=== PATIENT | male | born 1945 | race Caucasian/White ===

== ENCOUNTER → 2017-09-30 | Outpatient (CLI) | payer MEDICARE ==
[2017-09-30 16:15] LABS: ALT 26 U/L (21-72); AST 23 U/L (17-59); Alkaline Phosphatase 48 U/L (38-126); Blood Urea Nitrogen 25 mg/dL (9-20); Calcium 8.8 mg/dL (8.4-10.2); Chloride 89 mmol/L (98-107); Glucose 214 mg/dL (74-99); Potassium 4.7 mmol/L (3.5-5.1); Sodium 143 mmol/L (137-145); Total Bilirubin 0.4 mg/dL (0.2-1.3); Total Protein 6.1 g/dL (6.3-8.2)
[2017-09-30 16:22] LABS: Anion Gap 7 mmol/L
[2017-09-30 18:15] LABS: Carbon Dioxide 47 mmol/L (22-30)
== END | disposition home or self-care (01) ==
LOC: LABWHC1 15:25
PROVIDERS: ATTEND Internal Medicine
DX: I50.9 Heart failure, unspecified (principal)
CPT/HCPCS: 36415; 80053; 83880

== ENCOUNTER 2020-08-09 17:13 | Inpatient (IN) | payer MEDICARE ==
[2020-08-09] MEDS ORDERED: NITROGLYCERIN SL TABS 0.4 MG TAB SUBLINGUAL STA ×3 (17:31)
[2020-08-09] MEDS ORDERED: ASPIRIN 81 MG PO STA (17:31)
--- NOTE | 2020-08-09 17:34 | ED ---
General Adult HPI - General Chief complaint: Chest Pain Stated complaint: Chest Pain Time Seen by Provider: 08/09/20 17:23 Source: patient, RN notes reviewed Mode of arrival: ambulatory Limitations: no limitations - History of Present Illness Initial comments: Patient is a pleasant 74-year-old male presenting to the emergency Department with complaints of chest discomfort. Onset of symptoms was a couple of hours ago while walking around at home. Discomfort was moderate and improved with 1 nitroglycerin. Discomfort is currently 5/10. Patient has a difficult time describing his symptoms. No radiation. Patient does have a little bit of associated dyspnea, especially with exertion. No nausea or diaphoresis. Patient does have history of similar symptoms previously associated with heart attack and stent placement. No leg pain or leg swelling. - Related Data Home Medications Medication Instructions Recorded Confirmed Calcipotriene [Dovonex] 1 applic TOPICAL HS 08/09/20 08/09/20 Furosemide [Lasix] 80 mg PO BID 08/09/20 08/09/20 Insulin Glargine,Hum.rec.anlog 50 units SQ HS 08/09/20 08/09/20 [Toujeo Solostar] Insulin Lispro [humaLOG Kwikpen] See Protocol SQ ACHS 08/09/20 08/09/20 Losartan [Cozaar] 25 mg PO DAILY 08/09/20 08/09/20 Rosuvastatin Calcium [Crestor] 10 mg PO DAILY 08/09/20 08/09/20 Vitamin D3(Unknown Dose) 1 tab PO DAILY 08/09/20 08/09/20 carvediloL [Coreg] 6.25 mg PO BID 08/09/20 08/09/20 metFORMIN HCL [Glucophage] 1,000 mg PO BID 08/09/20 08/09/20 Allergies Allergy/AdvReac Type Severity Reaction Status Date / Time No Known Allergies Allergy Verified 08/09/20 18:09 Review of Systems ROS Statement: Those systems with pertinent positive or pertinent negative responses have been documented in the HPI. ROS Other: All systems not noted in ROS Statement are negative. Constitutional: Denies: fever Eyes: Denies: eye pain ENT: Denies: ear pain Respiratory: Reports: as per HPI Cardiovascular: Reports: as per HPI, chest pain Endocrine: Reports: fatigue Gastrointestinal: Denies: abdominal pain, nausea Genitourinary: Denies: dysuria Musculoskeletal: Denies: back pain Skin: Denies: rash Neurological: Denies: weakness Past Medical History Past Medical History: COPD, Diabetes Mellitus, Hyperlipidemia, Hypertension, Myocardial Infarction ([place]), Renal Disease History of Any Multi-Drug Resistant Organisms: None Reported Past Surgical History: Heart Catheterization With Stent, Hernia Repair Additional Past Surgical History / Comment(s): 5 cardiac stents Past Psychological History: No Psychological Hx Reported Smoking Status: Former smoker Past Alcohol Use History: None Reported Past Drug Use History: None Reported General Exam Limitations: no limitations General appearance: alert Head exam: Present: normocephalic Eye exam: Present: normal appearance Neck exam: Present: normal inspection Respiratory exam: Present: normal lung sounds bilaterally. Absent: chest wall tenderness Cardiovascular Exam: Present: regular rate, normal rhythm Expanded Peripheral pulses: 2+: Radial (R), Radial (L), Posterior Tibialis (R), Posterior Tibialis (L) GI/Abdominal exam: Present: soft, hernia (Easily reducible umbilical hernia). Absent: distended, tenderness Extremities exam: Present: normal inspection. Absent: pedal edema, calf tenderness Neurological exam: Present: alert Psychiatric exam: Present: normal affect, normal mood Skin exam: Present: normal color Course Vital Signs 08/09/20 08/09/20 17:20 18:19 Temperature 98 F Pulse Rate 96 101 H Respiratory 18 18 Rate Blood Pressure 168/87 152/83 O2 Sat by Pulse 100 95 Oximetry - Reevaluation(s) Reevaluation #1: 08/09/20 18:30 Case was discussed with Dr. Malone including patient's troponin, hemoglobin and platelet count. At this time he does recommend only aspirin. He states heparin will be considered if patient's discomfort returns. Patient reevaluated and updated. Dr. alves has been paged for admission. EKG Findings - EKG Comments: EKG Findings:: Sinus tachycardia 1:15. For screening AV block IN of 224. QRS 98. QT 300. QTc 4:15. Left axis. LVH criteria. Nonspecific T waves. Medical Decision Making - Medical Decision Making Patient reevaluated and symptom-free following nitroglycerin. Case also discussed with Dr. Alves who will admit his patient and agrees with cardiology consult. He also requests consult with Dr. Morris who sees patient for pulmonary fibrosis. He is made aware of plan regarding anticoagulation per cardiology - Lab Data Result diagrams: 08/09/20 18:04 08/09/20 17:42 Lab Results 08/09/20 08/09/20 08/09/20 Range/Units 17:42 17:42 18:04 WBC 6.1 (3.8-10.6) k/uL RBC 2.73 L (4.30-5.90) m/uL Hgb 8.1 L (13.0-17.5) gm/dL Hct 25.0 L (39.0-53.0) % MCV 91.4 (80.0-100.0) fL MCH 29.6 (25.0-35.0) pg MCHC 32.4 (31.0-37.0) g/dL RDW 14.1 (11.5-15.5) % Plt Count 109 L (150-450) k/uL MPV 7.0 Neutrophils % 76 % Lymphocytes % 11 % Monocytes % 6 % Eosinophils % 4 % Basophils % 1 % Neutrophils # 4.6 (1.3-7.7) k/uL Lymphocytes # 0.7 L (1.0-4.8) k/uL Monocytes # 0.4 (0-1.0) k/uL Eosinophils # 0.2 (0-0.7) k/uL Basophils # 0.0 (0-0.2) k/uL PT (9.0-12.0) sec INR (<1.2) APTT (22.0-30.0) sec Sodium 143 (137-145) mmol/L Potassium 5.6 H (3.5-5.1) mmol/L Chloride 103 (98-107) mmol/L Carbon Dioxide 35 H (22-30) mmol/L Anion Gap 5 mmol/L BUN 43 H (9-20) mg/dL Creatinine 1.91 H (0.66-1.25) mg/dL Est GFR (CKD-EPI)AfAm 39 (>60 ml/min/1.73 sqM) Est GFR (CKD-EPI)NonAf 34 (>60 ml/min/1.73 sqM) Glucose 194 H (74-99) mg/dL Calcium 9.0 (8.4-10.2) mg/dL Magnesium 2.2 (1.6-2.3) mg/dL Total Bilirubin 0.4 (0.2-1.3) mg/dL AST 29 (17-59) U/L ALT 14 (4-49) U/L Alkaline Phosphatase 53 (38-126) U/L Troponin I 0.085 H* (0.000-0.034) ng/mL NT-Pro-B Natriuret Pep pg/mL Total Protein 6.8 (6.3-8.2) g/dL Albumin 4.4 (3.5-5.0) g/dL Coronavirus (PCR) (Not Detectd) 08/09/20 08/09/20 08/09/20 Range/Units 18:04 18:04 18:08 WBC (3.8-10.6) k/uL RBC (4.30-5.90) m/uL Hgb (13.0-17.5) gm/dL Hct (39.0-53.0) % MCV (80.0-100.0) fL MCH (25.0-35.0) pg MCHC (31.0-37.0) g/dL RDW (11.5-15.5) % Plt Count (150-450) k/uL MPV Neutrophils % % Lymphocytes % % Monocytes % % Eosinophils % % Basophils % % Neutrophils # (1.3-7.7) k/uL Lymphocytes # (1.0-4.8) k/uL Monocytes # (0-1.0) k/uL Eosinophils # (0-0.7) k/uL Basophils # (0-0.2) k/uL PT 10.5 (9.0-12.0) sec INR 1.0 (<1.2) APTT 23.4 (22.0-30.0) sec Sodium (137-145) mmol/L Potassium (3.5-5.1) mmol/L Chloride (98-107) mmol/L Carbon Dioxide (22-30) mmol/L Anion Gap mmol/L BUN (9-20) mg/dL Creatinine (0.66-1.25) mg/dL Est GFR (CKD-EPI)AfAm (>60 ml/min/1.73 sqM) Est GFR (CKD-EPI)NonAf (>60 ml/min/1.73 sqM) Glucose (74-99) mg/dL Calcium (8.4-10.2) mg/dL Magnesium (1.6-2.3) mg/dL Total Bilirubin (0.2-1.3) mg/dL AST (17-59) U/L ALT (4-49) U/L Alkaline Phosphatase (38-126) U/L Troponin I (0.000-0.034) ng/mL NT-Pro-B Natriuret Pep 3540 pg/mL Total Protein (6.3-8.2) g/dL Albumin (3.5-5.0) g/dL Coronavirus (PCR) Not Detected (Not Detectd) - Radiology Data Radiology results: image reviewed (Chest x-ray does show basilar pulmonary infiltrates and atelectasis worse than previous. No definite heart failure. Probable pulmonary fibrosis.) Critical Care Time Critical Care Time: Yes Total Critical Care Time: 32 Disposition Clinical Impression: Unstable angina pectoris Disposition: ADMITTED IP TO THIS [facility] Condition: Serious Is patient prescribed a controlled substance at d/c from ED?: No Referrals: Migdalia Morris MD [STAFF PHYSICIAN] - 1-2 days Decision Time: 18:36
[2020-08-09 17:59] LABS: Albumin 4.4 g/dL (3.5-5.0); Magnesium 2.2 mg/dL (1.6-2.3); Potassium 5.6 mmol/L (3.5-5.1); Total Bilirubin 0.4 mg/dL (0.2-1.3); Total Protein 6.8 g/dL (6.3-8.2)
--- NOTE | 2020-08-09 18:00 | XR ---
EXAMINATION TYPE: XR chest 2V DATE OF EXAM: 08/09/2020 COMPARISON: 03/29/2020 HISTORY: Short of breath chest pain TECHNIQUE: FINDINGS: There is poor inspiration. There is atelectasis at the lung bases. There is no definite hea rt failure. There is coarse interstitial density in the lungs. There are chest leads. IMPRESSION: Basilar pulmonary infiltrates and atelectasis appears worse than old exam. No definite he art failure. There is probably pulmonary fibrosis.
[2020-08-09 18:08] LABS: Basophils % (A) 1 %; Eosinophils # (A) 0.2 k/uL (0-0.7); Eosinophils % (A) 4 %; HGB 8.1 gm/dL (13.0-17.5); Lymphocytes # (A) 0.7 k/uL (1.0-4.8); Lymphocytes % (A) 11 %; MCH 29.6 pg (25.0-35.0); MCHC 32.4 g/dL (31.0-37.0); MCV 91.4 fL (80.0-100.0); Monocytes # (A) 0.4 k/uL (0-1.0); Monocytes % (A) 6 %; Neutrophils # (A) 4.6 k/uL (1.3-7.7); Neutrophils % (A) 76 %; Platelet Count 109 k/uL (150-450); RBC 2.73 m/uL (4.30-5.90); RDW 14.1 % (11.5-15.5); WBC 6.1 k/uL (3.8-10.6)
[2020-08-09 18:16] LABS: Partial Thromboplastin Time 23.4 sec (22.0-30.0); Prothrombin Time 10.5 sec (9.0-12.0)
[2020-08-09] MEDS ORDERED: NITROGLYCERIN SL TABS 0.4 MG TAB SUBLINGUAL PRN (18:36)
[2020-08-09] MEDS ORDERED: INSULIN DETEMIR (LEVEMIR) 100 UNIT/ML SYR SQ SCH (23:30)
[2020-08-09 23:33] LABS: Cholesterol 94 mg/dL (<200); HDL Cholesterol 25 mg/dL (40-60); LDL Cholesterol,Calculated 26 mg/dL (0-99); Triglycerides 213 mg/dL (<150)
[2020-08-09 23:53] LABS: Glucose,Whole Blood 211 mg/dL (75-99)
[2020-08-10] MEDS: NITROGLYCERIN OINT 1 INCH/GM PACKET TOPICAL SCH ×3 (00:11→13:04)
[2020-08-10 06:19] LABS: Glucose,Whole Blood 115 mg/dL (75-99)
[2020-08-10] MEDS: INSULIN ASPART (NovoLOG) 100 UNIT/ML VIAL SQ SCH ×3 (06:31→17:13)
[2020-08-10] MEDS: carvediloL 6.25 MG TAB PO SCH ×3 (06:44→17:15)
[2020-08-10 07:46] VITALS: RESP 18
[2020-08-10] MEDS: FUROSEMIDE 80 MG TAB PO SCH ×2 (08:10)
[2020-08-10] MEDS ORDERED: LOSARTAN 25 MG TAB PO SCH (09:00)
[2020-08-10] MEDS ORDERED: ASPIRIN 325 MG TAB PO SCH (09:00)
[2020-08-10] MEDS ORDERED: metFORMIN 500 MG TAB PO SCH (09:00)
[2020-08-10] MEDS ORDERED: ATORVASTATIN 20 MG TAB PO SCH (09:00)
[2020-08-10] MEDS ORDERED: NON FORMULARY DRUG (Vitamin D3(Unknown Dose) 1 TAB) PO SCH (09:00)
[2020-08-10 09:25] LABS: Calcium 8.9 mg/dL (8.4-10.2)
[2020-08-10] MEDS ORDERED: NITROGLYCERIN SL TABS 0.4 MG TAB SUBLINGUAL PRN (09:49)
[2020-08-10] MEDS ORDERED: SODIUM CHLORIDE 0.9% 1,000 ML in EMPTY BAG 1 BAG IV ONE (09:49)
[2020-08-10] MEDS ORDERED: ATORVASTATIN 20 MG TAB PO STA (09:49)
[2020-08-10] MEDS ORDERED: ALPRAZolam 0.5 MG TAB PO PRN (09:49)
[2020-08-10] MEDS ORDERED: ALPRAZolam 0.25 MG TAB PO PRN (09:49)
[2020-08-10] MEDS ORDERED: ASPIRIN 325 MG TAB PO STA (09:49)
[2020-08-10] MEDS ORDERED: LIDOCAINE 1% INJ 10MG/ML (20 ML MDV) ONE (10:21)
[2020-08-10] MEDS ORDERED: VERAPAMIL 2.5 MG/ML 2 ML AMP ONE (10:21)
[2020-08-10 10:23] LABS: Glucose,Whole Blood 74 mg/dL (75-99)
[2020-08-10] MEDS ORDERED: IV FLUID CONTINUATION 1,000 ML IV ONE (10:45)
[2020-08-10] MEDS ORDERED: fentaNYL (PF) 50 MCG/ML 2 ML AMP ONE (10:58)
[2020-08-10] MEDS ORDERED: MIDAZOLAM 2 MG/2 ML VIAL IVP ONE (10:58)
[2020-08-10] MEDS ORDERED: fentaNYL (PF) 50 MCG/ML 2 ML AMP IVP ONE (10:58)
[2020-08-10] MEDS ORDERED: LIDOCAINE 1% INJ 10MG/ML (20 ML MDV) SQ ONE (10:59)
[2020-08-10] MEDS: VERAPAMIL SYRINGE (5 MG/10 ML) INTRAARTER ONE ×2 (11:01→11:28)
[2020-08-10] MEDS ORDERED: IOPAMIDOL-370 125ML BTL INJ ONE (11:29)
[2020-08-10 11:38] LABS: HCT 26.2 % (39.0-53.0); HGB 8.2 gm/dL (13.0-17.5); Hypochromasia Slight; MCH 28.9 pg (25.0-35.0); MCHC 31.3 g/dL (31.0-37.0); MCV 92.3 fL (80.0-100.0); Mean Platelet Volume 7.5; Platelet Count 109 k/uL (150-450); RBC 2.84 m/uL (4.30-5.90); RDW 14.2 % (11.5-15.5); WBC 6.5 k/uL (3.8-10.6)
[2020-08-10 12:02] LABS: Glucose,Whole Blood 75 mg/dL (75-99)
--- NOTE | 2020-08-10 13:24 | P.HPIM ---
History of Present Illness H&P Date: 08/10/20 (Chest pain, acute coronary artery syndrome) Chief Complaint: Chest pain, abnormal troponin, abnormal pro BNP, anemia. This is dictation of the history and physical by . Chief complaint chest pain precordial. History of present illness: 74 years old male presented to the emergency room department with the chest discomfort, onset of the chest pain to hour prior to the admission and that happened while walking around her home the discomfort was moderate improved by nitroglycerin. In the ER the discomfort was 5/10 patient also has other medical problems and he was having difficult to explain his symptoms, no radiation and he associated dyspnea. No nausea no vomiting no diaphoresis similar of the symptoms he had previous heart attack and previously stent placement. Past medical history: He is diabetes mellitus type 2 insulin-dependent fluctuating with uncontrolled. Pulmonary fibrosis improved by biopsy and treated by Dr. Chaudhari pulmonary and akil connelly. Hyper lipidemia and history of psoriasis. Vitamin D deficiency. COPD Hypertension benign with hypertensive heart disease Chronic kidney disease stage III. Previous history of myocardial infarction History of hernia repair cardiac catheterization, stent with a totally stent 5 in the past Habits former smoker quite. No drug use and no alcohol intake. Medication #1 Lasix 80 mg twice a day #2 insulin kilogram 2JU 50 units subcutaneously at at bedtime #3 insulin lispro Humalog before meals and at bedtime. Losartan 25 mg daily Rosuvastatin 10 mg daily Vitamin D3 1000 units daily. He was also on carvedilol 6.25 mg twice a day, Metformin 1000 mg twice a day Senokot S8.6 milligram tablet twice a day Spironolactone 25 mg once daily next furosemide 80 mg twice a day No belies her albuterol ipratropium 4 times a day inhalation therapy. Metoprolol 25 mg daily Permanent oxygen [address] Chaudhari for pulmonary fibrosis Nitrostat 0.4 mg sublingual when necessary aspirin 81 mg enteric-coated once a day. No ALLERGY. Review of system psychiatry patient was conscious alert oriented able to co mmunicate freely. No pacemaker Use glasses Denied any nausea or vomiting occasional constipation. Cardiovascular chest pain recurrent. Musculoskeletal back pain. Endocrine diabetes mellitus. Hyper inflation with emphysema and COPD pulmonary. benign prostatic hypertrophy. Oxygen supplemental dependent. Pulmonary interstitial lung disease. Thoracolumbar and lumbosacral degenerative arthritis. Peripheral edema and venous insult deficiency. Patient Seen and evaluated [id number] Head was normocephalic and atraumatic pupil was equal reactive no infection neck was supple no JVD no thyromegaly no lymphadenopathy. Respiratory lung was expanded with hyperinflation two thirds of the lung is rhonchi dry rhonchi with the associated of the pulmonary fibrosis and hypoxemia. Cardiovascular was sinus tachycardia found to be the troponin progressively elevation with underlying subendocardial ischemia with the coronary atherosclerosis. Extremities he had peripheral edema 1+ no tenderness on the. Neurologically he is awake alert psychiatry he has normal mood and skin color is pale with the underlying anemia the vital sign on admission indicating that temperature 90.8 pulse rate 96 Spataro rate 18 blood pressure 168/87 with the saturation 100% on 4 L. The assessment patient had acute coronary artery syndrome with chest pain and progressive elevation of troponin is less than and the the emergency room discuss it immediately with the cardiology and they will be seeing him in the morning and recommended aspirin and patient will be seen by consultation with the heavy equipment sales associate and the pulmonary Dr. Chaudhari or associate due to his pulmonary fibrosis which is chronic his white count is normal and found that his troponins progressively increased and patient may be taken to this afternoon to the cardiac cath by the cardiology patient already had 5 stents in the past and he has compromised heart The last echocardiogram available to me on the echocardiogram result as mentioned done on 04/05/2018 with the underlying ejection fraction 50% with a moderate concentric hypertrophy and hypokinesis of the inferior wall from the mid wall to the apex and diastolic function evaluation indicating created. And patient is well Seen Dr. Chaudhari on 08/03/2020 in the main office. Past Medical History Past Medical History: COPD, Diabetes Mellitus, Hyperlipidemia, Hypertension, Myocardial Infarction ([place]), Renal Disease Last Myocardial Infarction Date:: 2011 History of Any Multi-Drug Resistant Organisms: None Reported Past Surgical History: Heart Catheterization With Stent, Hernia Repair Additional Past Surgical History / Comment(s): 5 cardiac stents Past Anesthesia/Blood Transfusion Reactions: No Reported Reaction Date of Last Stent Placement:: 2011 Past Psychological History: No Psychological Hx Reported Smoking Status: Former smoker Past Alcohol Use History: None Reported Past Drug Use History: None Reported - Past Family History Father Additional Family Medical History / Comment(s): Lung cancer Medications and Allergies Home Medications Medication Instructions Recorded Confirmed Type Calcipotriene [Dovonex] 1 applic TOPICAL HS 08/09/20 08/09/20 History Furosemide [Lasix] 80 mg PO BID 08/09/20 08/09/20 History Insulin Glargine,Hum.rec.anlog 50 units SQ HS 08/09/20 08/09/20 History [Toujeo Solostar] Insulin Lispro [humaLOG Kwikpen] See Protocol SQ ACHS 08/09/20 08/09/20 History Losartan [Cozaar] 25 mg PO DAILY 08/09/20 08/09/20 History Rosuvastatin Calcium [Crestor] 10 mg PO DAILY 08/09/20 08/09/20 History Vitamin D3(Unknown Dose) 1 tab PO DAILY 08/09/20 08/09/20 History carvediloL [Coreg] 6.25 mg PO BID 08/09/20 08/09/20 History metFORMIN HCL [Glucophage] 1,000 mg PO BID 08/09/20 08/09/20 History Allergies Allergy/AdvReac Type Severity Reaction Status Date / Time No Known Allergies Allergy Verified 08/09/20 18:09 Physical Exam Vitals: Vital Signs Temp Pulse Pulse Resp BP BP BP 08/10/20 12:41 18 121/68 08/10/20 12:26 18 135/78 08/10/20 12:11 18 134/66 08/10/20 11:56 98.4 F 18 145/77 08/10/20 10:11 97.9 F 84 18 136/61 08/10/20 07:45 97.9 F 84 18 136/61 08/10/20 06:44 143/63 08/10/20 04:00 97.7 F 91 20 160/83 08/10/20 02:00 97 18 08/10/20 00:00 98.4 F 97 18 155/80 08/09/20 22:36 99 18 08/09/20 22:07 98.1 F 99 18 170/78 08/09/20 18:19 101 H 18 152/83 08/09/20 17:20 98 F 96 18 168/87 Pulse Ox 08/10/20 12:41 97 08/10/20 12:26 97 08/10/20 12:11 97 08/10/20 11:56 97 08/10/20 10:11 97 08/10/20 07:45 97 08/10/20 06:44 08/10/20 04:00 99 08/10/20 02:00 08/10/20 00:00 99 08/09/20 22:36 08/09/20 22:07 100 08/09/20 18:19 95 08/09/20 17:20 100 Intake and Output 08/09/20 08/10/20 08/10/20 22:59 06:59 14:59 Intake Total 150 Balance 150 Intake: IV 150 Other: Voiding Method Toilet Toilet Toilet Urinal # Voids 2 Weight 108.409 kg 107.6 kg Results CBC & Chem 7: 08/10/20 08:34 08/10/20 08:34 Labs: Abnormal Lab Results - Last 24 Hours (Table) 08/09/20 08/09/20 08/09/20 Range/Units 17:42 17:42 17:42 RBC (4.30-5.90) m/uL Hgb (13.0-17.5) gm/dL Hct (39.0-53.0) % Plt Count (150-450) k/uL Lymphocytes # (1.0-4.8) k/uL Sodium (137-145) mmol/L Potassium 5.6 H (3.5-5.1) mmol/L Carbon Dioxide 35 H (22-30) mmol/L BUN 43 H (9-20) mg/dL Creatinine 1.91 H (0.66-1.25) mg/dL Glucose 194 H (74-99) mg/dL POC Glucose (mg/dL) (75-99) mg/dL Troponin I 0.085 H* (0.000-0.034) ng/mL Triglycerides 213 H (<150) mg/dL HDL Cholesterol 25 L (40-60) mg/dL 08/09/20 08/09/20 08/09/20 Range/Units 18:04 21:11 23:44 RBC 2.73 L (4.30-5.90) m/uL Hgb 8.1 L (13.0-17.5) gm/dL Hct 25.0 L (39.0-53.0) % Plt Count 109 L (150-450) k/uL Lymphocytes # 0.7 L (1.0-4.8) k/uL Sodium (137-145) mmol/L Potassium (3.5-5.1) mmol/L Carbon Dioxide (22-30) mmol/L BUN (9-20) mg/dL Creatinine (0.66-1.25) mg/dL Glucose (74-99) mg/dL POC Glucose (mg/dL) (75-99) mg/dL Troponin I 0.125 H* 0.146 H* (0.000-0.034) ng/mL Triglycerides (<150) mg/dL HDL Cholesterol (40-60) mg/dL 08/09/20 08/10/20 08/10/20 Range/Units 23:51 06:17 08:34 RBC (4.30-5.90) m/uL Hgb (13.0-17.5) gm/dL Hct (39.0-53.0) % Plt Count (150-450) k/uL Lymphocytes # (1.0-4.8) k/uL Sodium 146 H (137-145) mmol/L Potassium (3.5-5.1) mmol/L Carbon Dioxide 42 H* (22-30) mmol/L BUN 42 H (9-20) mg/dL Creatinine 1.91 H (0.66-1.25) mg/dL Glucose (74-99) mg/dL POC Glucose (mg/dL) 211 H 115 H (75-99) mg/dL Troponin I (0.000-0.034) ng/mL Triglycerides (<150) mg/dL HDL Cholesterol (40-60) mg/dL 08/10/20 08/10/20 Range/Units 08:34 10:22 RBC 2.84 L (4.30-5.90) m/uL Hgb 8.2 L (13.0-17.5) gm/dL Hct 26.2 L (39.0-53.0) % Plt Count 109 L (150-450) k/uL Lymphocytes # (1.0-4.8) k/uL Sodium (137-145) mmol/L Potassium (3.5-5.1) mmol/L Carbon Dioxide (22-30) mmol/L BUN (9-20) mg/dL Creatinine (0.66-1.25) mg/dL Glucose (74-99) mg/dL POC Glucose (mg/dL) 74 L (75-99) mg/dL Troponin I (0.000-0.034) ng/mL Triglycerides (<150) mg/dL HDL Cholesterol (40-60) mg/dL Thrombosis Risk Factor Assmnt - Choose All That Apply Any of the Below Risk Factors Present?: Yes Each Factor Represents 1 point: Abnormal pulmonary function (COPD), Obesity (BMI >25) Other Risk Factors: Yes Each Risk Factor Represents 3 Points: Age 75 years or older Thrombosis Risk Factor Assessment Total Risk Factor Score: 5 Thrombosis Risk Factor Assessment Level: High Risk
[2020-08-10 13:26] LABS: Glucose,Whole Blood 110 mg/dL (75-99)
--- NOTE | 2020-08-10 13:48 | P.CRDCN ---
History of Present Illness Consult date: 08/10/20 History of present illness: CHIEF COMPLAINT: Chest pain HISTORY OF PRESENT ILLNESS: This is a 74-year-old male with a past medical history significant for diabetes mellitus, hyperlipidemia, hypertension, pulmonary fibrosis with home O2, chronic kidney disease, and coronary artery disease with previous stenting 5 (last stent in 2011). Patient follows in the office with Dr. Oneil. We have been asked to see the patient in consultation for chest pain. Patient examined this morning at the bedside. Patient states he has been having lower back pain for the past few months. He states it started to get a little bit worse yesterday. He also reports he began having a burning sensation in his chest around 11 AM. He also reports discomfort in his left arm. He states the burning in his chest and the pain in his left arm continued for a couple hours until he came to the hospital. Patient states these are the exact symptoms he experienced in the past when he required stents so he was concerned. At the time of examination this morning, the patient is denying any chest pain or pressure. He denies any discomfort in the left arm. Denies shortness of breath. Denies nausea or vomiting. Denies dizziness or lightheadedness. Patients hemoglobin 8.1 on admission. Baseline unknown. Patient denies any bright red blood in his stools or dark tarry stools. Patient's creatinine 1.91 on admission. Patient's creatinine was normal in 2018. Cardiology records reviewed from patient's office visit in April 2020 which reports patient now has a history of CKD and had a recent creatinine at that time of 2.1. DIAGNOSTICS: EKG reveals sinus tachycardia with heart rate of 115 Chest xray basilar pulmonary infiltrate and atelectasis appearing worse than old exam. No heart failure. Probable pulmonary fibrosis. Laboratory data: W BC 6.5. Hemoglobin 8.2. Platelet count 109. Sodium 146. Potassium 5.0. BUN 42. Creatinine 1.91. Troponin 0.085. 0.125. 0.146. Current home cardiac medications include Coreg 6.25 mg twice a day, Crestor 10mg daily, losartan 25 mg daily, Lasix 80 mg twice a day REVIEW OF SYSTEMS: At the time of my exam: CONSTITUTIONAL: Denies fever or chills. HEENT: Denies blurred vision, vision changes, or eye pain. Denies hemoptysis CARDIOVASCULAR: Denies chest pain, orthopnea, PND or palpitations RESPIRATORY: No shortness of breath. GASTROINTESTINAL: Denies abdominal pain. Denies nausea or vomiting. HEMATOLOGIC: Denies bleeding disorders. GENITOURINARY: Denies any blood in urine. SKIN: Denies pruitis. Denies rash. PHYSICAL EXAM: VITAL SIGNS: Reviewed. GENERAL: Well-developed in no acute distress. HEENT: Head is normocephalic. Pupils are equal, round. Sclerae anicteric. Mucous membranes of the mouth are moist. Neck supple. No JVD or thyromegaly LUNGS: Respirations even and unlabored. Lungs essentially clear to auscultation bilaterally. HEART: Regular rate and rhythm. S1 and S2 heard. ABDOMEN: Soft. Nondistended. Nontender. EXTREMITIES: Normal range of motion. No clubbing or cyanosis. Peripheral pulses intact. Trace bilateral lower extremity edema NEUROLOGIC: Awake and alert. Oriented x 3. ASSESSMENT: Non-ST elevated myocardial infarction Coronary artery disease with stent placement 5, last in 2011 Hypertension Hyperlipidemia Diabetes minus, type II Pulmonary fibrosis with home O2 Anemia, baseline unknown Chronic kidney disease PLAN: Obtain 2-D echo to assess cardiac structure and function Resume home cardiac medications Monitor kidney function Discussed case with patients paddle dyeing machine operator, Dr. Oneil. He states he is unavailable and requested Dr. Malone to perform cardiac cath. Patient to undergo cardiac cath today with Dr. Malone. Discussed with patient who is agreeable. Further recommendations pending patient's course Nurse practitioner note has been reviewed by physician. Signing provider agrees with the documented findings, assessment, and plan of care. Past Medical History Past Medical History: COPD, Diabetes Mellitus, Hyperlipidemia, Hypertension, M yocardial Infarction ([place]), Renal Disease Last Myocardial Infarction Date:: 2011 History of Any Multi-Drug Resistant Organisms: None Reported Past Surgical History: Heart Catheterization With Stent, Hernia Repair Additional Past Surgical History / Comment(s): 5 cardiac stents Past Anesthesia/Blood Transfusion Reactions: No Reported Reaction Date of Last Stent Placement:: 2011 Past Psychological History: No Psychological Hx Reported Smoking Status: Former smoker Past Alcohol Use History: None Reported Past Drug Use History: None Reported - Past Family History Father Additional Family Medical History / Comment(s): Lung cancer Medications and Allergies Home Medications Medication Instructions Recorded Confirmed Type Calcipotriene [Dovonex] 1 applic TOPICAL HS 08/09/20 08/09/20 History Furosemide [Lasix] 80 mg PO BID 08/09/20 08/09/20 History Insulin Glargine,Hum.rec.anlog 50 units SQ HS 08/09/20 08/09/20 History [Toujeo Solostar] Insulin Lispro [humaLOG Kwikpen] See Protocol SQ ACHS 08/09/20 08/09/20 History Losartan [Cozaar] 25 mg PO DAILY 08/09/20 08/09/20 History Rosuvastatin Calcium [Crestor] 10 mg PO DAILY 08/09/20 08/09/20 History Vitamin D3(Unknown Dose) 1 tab PO DAILY 08/09/20 08/09/20 History carvediloL [Coreg] 6.25 mg PO BID 08/09/20 08/09/20 History metFORMIN HCL [Glucophage] 1,000 mg PO BID 08/09/20 08/09/20 History Allergies Allergy/AdvReac Type Severity Reaction Status Date / Time No Known Allergies Allergy Verified 08/09/20 18:09 Physical Exam Vitals: Vital Signs Temp Pulse Pulse Resp BP BP BP 08/10/20 13:11 18 132/66 08/10/20 12:41 18 121/68 08/10/20 12:26 18 135/78 08/10/20 12:11 18 134/66 08/10/20 11:56 98.4 F 18 145/77 08/10/20 10:11 97.9 F 84 18 136/61 08/10/20 07:45 97.9 F 84 18 136/61 08/10/20 06:44 143/63 08/10/20 04:00 97.7 F 91 20 160/83 08/10/20 02:00 97 18 08/10/20 00:00 98.4 F 97 18 155/80 08/09/20 22:36 99 18 08/09/20 22:07 98.1 F 99 18 170/78 08/09/20 18:19 101 H 18 152/83 08/09/20 17:20 98 F 96 18 168/87 Pulse Ox 08/10/20 13:11 95 08/10/20 12:41 97 08/10/20 12:26 97 08/10/20 12:11 97 08/10/20 11:56 97 12/18/20 10:11 97 08/10/20 07:45 97 08/10/20 06:44 08/10/20 04:00 99 08/10/20 02:00 08/10/20 00:00 99 08/09/20 22:36 08/09/20 22:07 100 08/09/20 18:19 95 08/09/20 17:20 100 Intake and Output 08/09/20 08/10/20 08/10/20 22:59 06:59 14:59 Intake Total 150 Output Total 450 Balance -300 Intake: IV 150 Output: Urine 450 Other: Voiding Method Toilet Toilet Toilet Urinal # Voids 2 2 Weight 108.409 kg 107.6 kg Results 08/10/20 08:34 08/10/20 08:34 Cardiac Enzymes 08/09/20 08/09/20 08/09/20 Range/Units 17:42 17:42 21:11 AST 29 (17-59) U/L Troponin I 0.085 H* 0.125 H* (0.000-0.034) ng/mL 08/09/20 Range/Units 23:44 AST (17-59) U/L Troponin I 0.146 H* (0.000-0.034) ng/mL Coagulation 08/09/20 Range/Units 18:04 PT 10.5 (9.0-12.0) sec APTT 23.4 (22.0-30.0) sec Lipids 08/09/20 Range/Units 17:42 Triglycerides 213 H (<150) mg/dL Cholesterol 94 (<200) mg/dL HDL Cholesterol 25 L (40-60) mg/dL CBC 08/09/20 08/10/20 Range/Units 18:04 08:34 WBC 6.1 6.5 (3.8-10.6) k/uL RBC 2.73 L 2.84 L (4.30-5.90) m/uL Hgb 8.1 L 8.2 L (13.0-17.5) gm/dL Hct 25.0 L 26.2 L (39.0-53.0) % Plt Count 109 L 109 L (150-450) k/uL Comprehensive Metabolic Panel 12/17/20 12/18/20 Range/Units 17:42 08:34 Sodium 143 146 H (137-145) mmol/L Potassium 5.6 H 5.0 (3.5-5.1) mmol/L Chloride 103 100 (98-107) mmol/L Carbon Dioxide 35 H 42 H* (22-30) mmol/L BUN 43 H 42 H (9-20) mg/dL Creatinine 1.91 H 1.91 H (0.66-1.25) mg/dL Glucose 194 H 91 (74-99) mg/dL Calcium 9.0 8.9 (8.4-10.2) mg/dL AST 29 (17-59) U/L ALT 14 (4-49) U/L Alkaline Phosphatase 53 (38-126) U/L Total Protein 6.8 (6.3-8.2) g/dL Albumin 4.4 (3.5-5.0) g/dL Current Medications Generic Name Dose Route Start Last Admin Trade Name Freq PRN Reason Stop Dose Admin Alprazolam 0.25 mg 08/10/20 09:49 Alprazolam 0.25 Mg Tab PO Q6HR PRN Mild Anxiety Alprazolam 0.5 mg 08/10/20 09:49 Alprazolam 0.5 Mg Tab PO Q6HR PRN Moderate Anxiety Aspirin 325 mg 08/10/20 09:00 08/10/20 08:10 Aspirin 325 Mg Tab PO 325 mg DAILY ARIES Administration Atorvastatin Calcium 20 mg 08/10/20 09:00 08/10/20 08:10 Atorvastatin 20 Mg Tab PO 20 mg DAILY ARIES Administration Carvedilol 6.25 mg 08/09/20 23:30 08/10/20 06:44 Carvedilol 6.25 Mg Tab PO 6.25 mg BID-W/MEALS ARIES Administration Furosemide 80 mg 08/09/20 23:30 08/10/20 08:10 Furosemide 80 Mg Tab PO 80 mg BID ARIES Administration Sodium Chloride 1,000 ml/ IV 1,000 mls @ 107.6 mls/hr 08/10/20 09:49 08/10/20 10:26 Solution IV 08/10/20 19:06 107.6 mls/hr .[id number] ONE Administration 1 ML/KG/HR Insulin Aspart 0 unit 08/10/20 07:30 08/10/20 12:04 Insulin Aspart (Novolog) 100 Unit/Ml Vial SQ Not Given ACHS [facility] Protocol Insulin Detemir 20 unit 08/09/20 23:30 08/09/20 23:59 Insulin Detemir (Levemir) 100 Unit/Ml Syr SQ 20 unit HS ARIES Administration Losartan Potassium 25 mg 08/10/20 09:00 08/10/20 08:10 Losartan 25 Mg Tab PO 25 mg DAILY ARIES Administration Nitroglycerin 1 inch 08/10/20 00:00 08/10/20 13:04 Nitroglycerin Oint 1 Inch/Gm Packet TOPICAL Not Given Q6HR [facility] Nitroglycerin 0.4 mg 08/10/20 09:49 Nitroglycerin Sl Tabs 0.4 Mg Tab SUBLINGUAL Q5M PRN Chest Pain Calcipotriene [ 1 applic 08/10/20 21:00 Dovonex] 120 Gm TOPICAL Cream [facility] Sodium Chloride 10 ml 08/09/20 21:00 08/10/20 08:10 Sodium Chloride 0.9% Flush 10 Ml Syringe IV 10 ml BID ARIES Administration Intake and Output 08/09/20 08/10/20 08/10/20 22:59 06:59 14:59 Intake Total 150 Output Total 450 Balance -300 Intake: IV 150 Output: Urine 450 Other: Voiding Method Toilet Toilet Toilet Urinal # Voids 2 2 Weight 108.409 kg 107.6 kg 08/10/20 08:34 08/10/20 08:34
--- NOTE | 2020-08-10 14:11 | P.CNPUL ---
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 Has chronic shortness of breath. He has a history of pulmonary hypertension, Patient is a former smoker. Patient came into the emergency department on 08/09/2020 with complaints of burning chest discomfort, with left arm numbness. His symptoms started when she was walking around at home. His discomfort was moderate and improved with one nitroglycerin. However did not completely resolve, and some mild dyspnea associated with the chest pain especially with exertion, no nausea or diaphoresis. EKG was done in the emergency department showing sinus tachycardia, with left axis deviation, LVH criteria, and nonspecific T waves. She was given aspirin and nitroglycerin, with resolution of chest pain, she was admitted for observation, he was evaluated by cardiology, his troponins were elevated at 0.085, 0.125, and 0.146. Is also noted to have elevated creatinine of 1.91, with BUN of 43. He was tested for COVID and the test was negative, proBNP was elevated at 3540, his chest x-ray shows basilar pulmonary infiltrates and atelectasis . Slightly worse than his previous chest x-ray from 03/29/2020. This had no fever or chills, he sat 95% on 5 L, he is hemodynamically stable, he underwent heart catheterization today. Full report is not available to us at this time however were told that there was no stenting done today. Review of Systems All systems: negative Constitutional: Denies chills, Denies fever Eyes: denies blurred vision, denies pain Ears, nose, mouth and throat: Denies headache, Denies sore throat Cardiovascular: Reports chest pain, Denies shortness of breath Respiratory: Denies cough Gastrointestinal: Denies abdominal pain, Denies diarrhea, Denies nausea, Denies vomiting Musculoskeletal: Denies myalgias Integumentary: Denies pruritus, Denies rash Neurological: Denies numbness, Denies weakness Psychiatric: Denies anxiety, Denies depression Endocrine: Denies fatigue, Denies weight change Past Medical History Past Medical History: COPD, Diabetes Mellitus, Hyperlipidemia, Hypertension, Myocardial Infarction ([place]), Renal Disease Last Myocardial Infarction Date:: 2011 History of Any Multi-Drug Resistant Organisms: None Reported Past Surgical History: Heart Catheterization With Stent, Hernia Repair Additional Past Surgical History / Comment(s): 5 cardiac stents Past Anesthesia/Blood Transfusion Reactions: No Reported Reaction Date of Last Stent Placement:: 2011 Past Psychological History: No Psychological Hx Reported Smoking Status: Former smoker Past Alcohol Use History: None Reported Past Drug Use History: None Reported - Past Family History Father Additional Family Medical History / Comment(s): Lung cancer Medications and Allergies Home Medications Medication Instructions Recorded Confirmed Type Calcipotriene [Dovonex] 1 applic TOPICAL HS 08/09/20 08/09/20 History Furosemide [Lasix] 80 mg PO BID 08/09/20 08/09/20 History Insulin Glargine,Hum.rec.anlog 50 units SQ HS 08/09/20 08/09/20 History [Toujeo Solostar] Insulin Lispro [humaLOG Kwikpen] See Protocol SQ ACHS 08/09/20 08/09/20 History Losartan [Cozaar] 25 mg PO DAILY 08/09/20 08/09/20 History Rosuvastatin Calcium [Crestor] 10 mg PO DAILY 08/09/20 08/09/20 History Vitamin D3(Unknown Dose) 1 tab PO DAILY 08/09/20 08/09/20 History carvediloL [Coreg] 6.25 mg PO BID 08/09/20 08/09/20 History metFORMIN HCL [Glucophage] 1,000 mg PO BID 08/09/20 08/09/20 History Allergies Allergy/AdvReac Type Severity Reaction Status Date / Time No Known Allergies Allergy Verified 08/09/20 18:09 Physical Exam Vitals: Vital Signs Temp Pulse Pulse Resp BP BP BP 08/10/20 13:11 18 132/66 08/10/20 12:41 18 121/68 08/10/20 12:26 18 135/78 08/10/20 12:11 18 134/66 08/10/20 11:56 98.4 F 18 145/77 12/18/20 10:11 97.9 F 84 18 136/61 08/10/20 07:45 97.9 F 84 18 136/61 08/10/20 06:44 143/63 08/10/20 04:00 97.7 F 91 20 160/83 08/10/20 02:00 97 18 08/10/20 00:00 98.4 F 97 18 155/80 08/09/20 22:36 99 18 08/09/20 22:07 98.1 F 99 18 170/78 08/09/20 18:19 101 H 18 152/83 08/09/20 17:20 98 F 96 18 168/87 Pulse Ox 08/10/20 13:11 95 08/10/20 12:41 97 08/10/20 12:26 97 08/10/20 12:11 97 08/10/20 11:56 97 08/10/20 10:11 97 08/10/20 07:45 97 08/10/20 06:44 08/10/20 04:00 99 08/10/20 02:00 08/10/20 00:00 99 08/09/20 22:36 08/09/20 22:07 100 08/09/20 18:19 95 08/09/20 17:20 100 Intake and Output 08/09/20 08/10/20 08/10/20 22:59 06:59 14:59 Intake Total 150 Output Total 450 Balance -300 Intake: IV 150 Output: Urine 450 Other: Voiding Method Toilet Toilet Toilet Urinal # Voids 2 2 Weight 108.409 kg 107.6 kg GENERAL EXAM: Alert, very pleasant, 74-year-old white male, on 5 L of oxygen and pulse ox 95%, resting in bed, status post heart catheterization via right radial approach comfortable in no apparent distress. HEAD: Normocephalic/atraumatic. EYES: Normal reaction of pupils, equal size. Conjunctiva pink, sclera white. NOSE: Clear with pink turbinates. THROAT: No erythema or exudates. NECK: No masses, no JVD, no thyroid enlargement, no adenopathy. CHEST: No chest wall deformity. Symmetrical expansion. LUNGS: Equal air entry with no crackles, wheeze, rhonchi or dullness. CVS: Regular rate and rhythm, normal S1 and S2, no gallops, no murmurs, no rubs ABDOMEN: Soft, nontender. No hepatosplenomegaly, normal bowel sounds, no guarding or rigidity. EXTREMITIES: No clubbing, no edema, no cyanosis, 2+ pulses and upper and lower extremities. MUSCULOSKELETAL: Muscle strength and tone normal. SPINE: No scoliosis or deformity SKIN: No rashes CENTRAL NERVOUS SYSTEM: Alert and oriented -3. No focal deficits, tone is normal in all 4 extremities. PSYCHIATRIC: Alert and oriented -3. Appropriate affect. Intact judgment and insight. Results - Laboratory Findings CBC and BMP: 08/10/20 08:34 08/10/20 08:34 PT/INR, D-dimer PT 10.5 sec (9.0-12.0) 08/09/20 18:04 INR 1.0 (<1.2) 08/09/20 18:04 Abnormal lab findings: Abnormal Labs 08/09/20 08/09/20 08/09/20 17:42 17:42 17:42 RBC Hgb Hct Plt Count Lymphocytes # Sodium Potassium 5.6 H Carbon Dioxide 35 H BUN 43 H Creatinine 1.91 H Glucose 194 H POC Glucose (mg/dL) Troponin I 0.085 H* Triglycerides 213 H HDL Cholesterol 25 L 08/09/20 08/09/20 08/09/20 18:04 21:11 23:44 RBC 2.73 L Hgb 8.1 L Hct 25.0 L Plt Count 109 L Lymphocytes # 0.7 L Sodium Potassium Carbon Dioxide BUN Creatinine Glucose POC Glucose (mg/dL) Troponin I 0.125 H* 0.146 H* Triglycerides HDL Cholesterol 08/09/20 08/10/20 08/10/20 23:51 06:17 08:34 RBC Hgb Hct Plt Count Lymphocytes # Sodium 146 H Potassium Carbon Dioxide 42 H* BUN 42 H Creatinine 1.91 H Glucose POC Glucose (mg/dL) 211 H 115 H Troponin I Triglycerides HDL Cholesterol 08/10/20 08/10/20 08/10/20 08:34 10:22 13:23 RBC 2.84 L Hgb 8.2 L Hct 26.2 L Plt Count 109 L Lymphocytes # Sodium Potassium Carbon Dioxide BUN Creatinine Glucose POC Glucose (mg/dL) 74 L 110 H Troponin I Triglycerides HDL Cholesterol - Diagnostic Findings Chest x-ray: report reviewed, image reviewed Assessment and Plan Plan: Assessment: #1. Exertional chest pain, with dyspnea, and left arm numbness, and elevated troponins, related to non-ST elevated myocardial infarction #2. History of renal artery disease with previous stent placement 5 #3. History of chronic kidney disease, recently diagnosed #4. Hypertension #5. Hyperlipidemia #6. Diabetes mellitus type 2 #7. Chronic hypoxic respiratory failure related to history of interstitial lung disease related to respiratory Bronchiolitis associated lung disease, cryptogenic organizing pneumonia. He usually wears 5 L of oxygen at home on a regular basis #8. Previous history of myocardial infarction #9. History of obstructive sleep apnea status of SUSANNA device is on no #10. Permanent smoker #11. History of emphysema Plan: Chest x-ray reviewed, and is consistent with patient's history of chronic interstitial lung disease, vital signs are stable, stable from the standpoint of his chronic lung disease, he underwent heart catheterization, he is currently chest pain-free, we will continue to follow with cardiology finish with the patient's course. Patient is stable from pulmonary perspective, and when he is cleared by cardiology he can be discharged home and follow-up with Dr. Morris in the outpatient basis I performed a history & physical examination of the patient and discussed their management with my nurse practitioner, Elsy Sevilla. I reviewed the nurse practitioner's note and agree with the documented findings and plan of care. Lung sounds are positive for diminished breath sounds. The findings and the impression was discussed with the patient. I attest to the documentation by the nurse practitioner. Time with Patient: Greater than 30
[2020-08-10 14:15] LABS: Hemoglobin A1C 6.3 % (4.0-6.0)
--- NOTE | 2020-08-10 15:46 | ECHOF ---
Referral Reason:LV function, chest pain MEASUREMENTS -------- HEIGHT: 170.2 cm WEIGHT: 107.5 kg BP: RVIDd: 2.7 cm (< 3.3) IVSd: 1.4 cm (0.6 - 1.1) LVIDd: 5.1 cm (3.9 - 5.3) LVPWd: 1.4 cm (0.6 - 1.1) IVSs: 1.9 cm LVIDs: 4.0 cm LVPWs: 1.6 cm Ao Diam: 3.1 cm (2.0 - 3.7) AV Cusp: 2.3 cm (1.5 - 2.6) LA Diam: 3.9 cm (2.7 - 3.8) MV EXCURSION: 18.221 mm (> 18.000) MV EF SLOPE: 61 mm/s (70 - 150) EPSS: 1.6 cm MV E Jordan: 0.82 m/s MV DecT: 220 ms MV A Jordan: 0.73 m/s MV E/A Ratio: 1.13 RAP: 5.00 mmHg RVSP: 73.86 mmHg FINDINGS -------- This was a technically difficult study with suboptimal views. The left ventricular size is normal. There is moderate concentric left ventricular hypertrophy. O verall left ventricular systolic function is mildly impaired with, an EF between 45 - 50 %. Right side appears enlarged. The left atrial size is normal. The right atrial size is normal. Lumason used The aortic valve is trileaflet and appears structurally normal. The mitral valve is normal. There is trace mitral regurgitation. Mild tricuspid regurgitation present. There is moderate to severe pulmonary hypertension. The rig ht ventricular systolic pressure, as measured by Doppler, is 73.86mmHg. There is no pulmonic regurgitation present. The aortic root size is normal. IVC Not well visulized. There is no pericardial effusion. CONCLUSIONS -------- 1. The left ventricular size is normal. 2. There is moderate concentric left ventricular hypertrophy. 3. Overall left ventricular systolic function is mildly impaired with, an EF between 45 - 50 %. 4. Right side appears enlarged. 5. There is trace mitral regurgitation. 6. Mild tricuspid regurgitation present. 7. There is moderate to severe pulmonary hypertension. 8. The right ventricular systolic pressure, as measured by Doppler, is 73.86mmHg. 9. There is no pericardial effusion. LINEMAN APPRENTICE: Jimena Galindo RDCS
[2020-08-10 15:59] VITALS: BP 145/67; PULSE 89; TEMP 98.5
[2020-08-10 16:58] LABS: Glucose,Whole Blood 131 mg/dL (75-99)
--- NOTE | 2020-08-10 17:51 | P.CARDCATH ---
Description of Procedure: PROCEDURES PERFORMED: Left heart catheterization, bilateral coronary angiography INDICATION: NSTEMI HISTORY: Patient is a pleasant 74 year old male with history of CKD, anemia, thrombocytopenia, CAD with multiple PCI's in the past to the RCA and circumflex, psoriasis, COPD, pulmonary fibrosis, reported renal artery stenosis. Patient presented with what he initially states was for abdominal and back pain which he has been having for months however also admitted to chest discomfort and was found to have mildly elevated troponins, with improvement in chest pain with nitro. CONSENT:I have discussed the risks, benefits and alternative therapies for the above-mentioned procedure and for both sedation/analgesia as well as necessary blood product administration, if indicated, as they pertain to this patient. The patient has indicated understanding and acceptance of the risks and procedures discussed. PROCEDURE: After the risks, benefits and alternatives of the above mentioned procedure explained in detail with the patient, informed consent was obtained. Patient was taken to the catheterization lab and prepped and draped in usual fashion. 1% lidocaine was used to anesthetize the right radial artery. A 6- [place] sheath was placed in the right radial artery using modified Seldinger technique. Left coronary angiography was performed with a 5-[place] JL 3.5 catheter and right coronary angiography was performed with a 5-[place] JR5 catheter in various views. The 5-[place] FR5 catheter was inserted into the left ventricle and pressure measurements were obtained. The right radial sheath was removed and a TR band was placed with hemostasis achieved. The patient tolerated the procedure well. Patient was transported back to the post catheterization holding area in stable condition. Conscious Sedation: Patient was monitored under the direct supervision of vision of myself for conscious sedation using Versed and fentanyl for a total duration of 28 minutes HEMODYNAMICS: Ao: 107/54 LV: 111/9, LVEDP 15mmHg SELECTIVE CORONARY ARTERIOGRAPHY: LEFT MAIN: The left main is a large caliber vessel which bifurcates into the LAD and circumflex. There is no significant stenosis. LEFT ANTERIOR DESCENDING CORONARY ARTERY: LAD is a large caliber vessel which wraps around to the apex. There is a long proximal to mid heavily calcified 50- 60% LAD stenosis involving the bifurcation of a moderate caliber diagonal 1 branch. Diagonal 1 has proximal 40-50% stenosis. LEFT CIRCUMFLEX CORONARY ARTERY: Left circumflex is a moderate to large caliber vessel. There is proximal 30-50% circumflex stenosis followed by a long mid circumflex stent going into a moderate to large caliber OM1 branch. There is 20-30% instent stenosis. The stent has jailed off a small caliber distal circumflex leading to a small caliber OM2 which is 100% occluded at the origin and appears chronic. RIGHT CORONARY ARTERY: The right coronary artery is a large caliber vessel which gives off a PDA and PLV branch and is the dominant vessel. There is a long proximal to mid RCA stent with diffuse 30-40% instent stenosis. FINAL IMPRESSION: 1. CAD as described above including 50-60% long calcified proximal to mid LAD lesion, 40-50% diagonal 1 stenosis, 30-50% circumflex instent stenosis, 100% "jailed" off distal circumflex which appears chronic, and 30-40% proximal to mid RCA stenosis. 2. Normal left sided filling pressures 3. CKD 4. Anemia PLAN: 1. Aggressive risk factor modification per most recent ACC/AHA guidelines. 2. Given CKD, anemia, thrombocytopenia and no obvious culprit lesion, would attempt to treat medically. If patient has recurrent refractory angina despite aggressive antianginals, could consider stress test or iFR of the LAD.
[2020-08-10 20:16] LABS: Glucose,Whole Blood 216 mg/dL (75-99)
[2020-08-10 20:50] LABS: Glucose,Whole Blood 179 mg/dL (75-99)
[2020-08-10] MEDS ORDERED: INSULIN DETEMIR (LEVEMIR) 100 UNIT/ML SYR SQ SCH (21:00)
[2020-08-10] MEDS ORDERED: CALCIPOTRIENE TOPICAL SCH (21:00)
--- NOTE | 2020-08-11 00:07 | P.EN ---
[facility] Team Note Hank bryant activated at 8:38 pm. Arrived on the scene shortly after. The patient was undergoing CPR. Discussed the case with the patient's RN and reviewed the chart. The patient had reportedly been noted to have an abnormal rhythm on telemetry and the nurse was notified who upon entering the room noted that he did not have a pulse. The patient's last known well time was 15-20 minutes prior. The patient was given high-quality CPR with PEA on telemetry. He was noted to have a severely distended abdomen. The [employer] TEAM LEADER was unable to intubate the patient and the patient due to significant facial and oropharyngeal edema. He was given IVP Epinephrine x 4. Discussed the case with the patient's son on the phone. The son noted that the patient did not wish to undergo mechanical ventilation or be on life-support for a prolonged duration. The patient continued to be in PEA with no shocks given. The patient subsequently at 8:54 pm. The family and the primary team were notified by the RN.
[2020-08-11] MEDS ORDERED: ASPIRIN 81 MG PO SCH (09:00)
--- NOTE | 2020-08-12 17:46 | P.DS ---
Providers Date of admission: 08/09/20 18:36 Expected date of discharge: 08/10/20 () Attending physician: David Carrero Consults: 08/09/20 18:36 Consult Physician Urgent Consulting Provider: Lucius Malone Consult Reason/Comments: ua Do you want consulting provider notified?: Already Contacted Consult Physician Urgent Consulting Provider: Migdalia Morris Consult Reason/Comments: pulmonary fibrosis Do you want consulting provider notified?: Already Contacted Primary care physician: David Carrero Discharge summary and final diagnosis. Patient coded on the floor telemetry, on 8:38 PM CPR was done family, son request. Stop CPR patient at 8:54 PM on 08/10/2020. Patient admitted on 08/09/2020 Presentation in the emergency room with the chest pain with elevated troponin. On 08/10/2020 Dr. Malone cardiology to come for cardiac cath with multiple coronary artery disease and atherosclerosis he recommended medical therapy. Patient on 8:38 PM found by the nursing staff he had pulseless they called the [facility] and they started CPR and the hospitalist was present. Patient's son as he discussed that with the hospitalist he wants to stop CPR and subsequently patient on 8:45 PM. Final diagnosis: #1 chest pain with elevated troponin with a history of underlying atherosclerotic heart disease coronary artery disease. And previous history of TX. #2 acute non-ST segment myocardial infarction with elevated troponin, impaired ejection fraction by by the echo cardiogram to 45% and previous history of stents. #3 chronic hypoxic respiratory failure due to interstitial lung disease. #4 history of biopsy of right upper lung with the presence of cryptogenic organizing pneumonia with the underlying history of smoking in the past. #5 diabetes mellitus type 2 insulin-dependent. #6 hypertension with hypertensive heart disease. #7 emphysema and COPD #8 chronic kidney disease #9 pulmonary hypertension severe #10 obstructive sleep apnea. #11 former smoker. Patient Condition at Discharge: Serious Plan - Discharge Summary Discharge Rx Participant: No New Discharge Prescriptions: No Action metFORMIN HCL [Glucophage] 1,000 mg PO BID Insulin Lispro [humaLOG Kwikpen] See Protocol SQ ACHS Insulin Glargine,Hum.rec.anlog [Toukrystleo Solostar] 50 units SQ HS carvediloL [Coreg] 6.25 mg PO BID Vitamin D3(Unknown Dose) 1 tab PO DAILY Rosuvastatin Calcium [Crestor] 10 mg PO DAILY Losartan [Cozaar] 25 mg PO DAILY Furosemide [Lasix] 80 mg PO BID Calcipotriene [Dovonex] 1 applic TOPICAL HS Discharge Medication List Calcipotriene [Dovonex] 1 applic TOPICAL HS 08/09/20 [History] Furosemide [Lasix] 80 mg PO BID 08/09/20 [History] Insulin Glargine,Hum.rec.anlog [Toujeo Solostar] 50 units SQ HS 08/09/20 [History] Insulin Lispro [humaLOG Kwikpen] See Protocol SQ ACHS 08/09/20 [History] Losartan [Cozaar] 25 mg PO DAILY 08/09/20 [History] Rosuvastatin Calcium [Crestor] 10 mg PO DAILY 08/09/20 [History] Vitamin D3(Unknown Dose) 1 tab PO DAILY 08/09/20 [History] carvediloL [Coreg] 6.25 mg PO BID 08/09/20 [History] metFORMIN HCL [Glucophage] 1,000 mg PO BID 08/09/20 [History] Follow up Appointment(s)/Referral(s): Migdalia Morris MD [STAFF PHYSICIAN] - 1-2 days (Follow up as scheduled in October per Dr. Morris.) Activity/Diet/Wound Care/Special Instructions: Metformin-hold for 48 hours post cardiac cath.
== END 2020-08-11 02:45 | disposition expired ==
LOC: EC 17:13 → 3SCARD 18:36
PROVIDERS: ADMIT Internal Medicine; ATTEND Internal Medicine
PROC: 5A12012 Performance of Cardiac Output, Single, Manual (ICD-10-PCS; principal; 2020-08-10 08:20)
PROC: 4A023N7 Measurement of Cardiac Sampling and Pressure, Left Heart, Percutaneous Approach (ICD-10-PCS; principal; 2020-08-10 08:20)
PROC: B2111ZZ Fluoroscopy of Multiple Coronary Arteries using Low Osmolar Contrast (ICD-10-PCS; principal; 2020-08-10 08:20)
DX: I21.4 Non-ST elevation (NSTEMI) myocardial infarction (principal); J96.11 Chronic respiratory failure with hypoxia; J98.11 Atelectasis; J84.116 Cryptogenic organizing pneumonia; I46.2 Cardiac arrest due to underlying cardiac condition; I27.20 Pulmonary hypertension, unspecified; J84.10 Pulmonary fibrosis, unspecified; E11.22 Type 2 diabetes mellitus with diabetic chronic kidney disease; E78.5 Hyperlipidemia, unspecified; N18.30 Chronic kidney disease, stage 3 unspecified; D63.1 Anemia in chronic kidney disease; I13.10 Hypertensive heart and chronic kidney disease without heart failure, with stage 1 through stage 4 chronic kidney disease, or unspecified chronic kidney disease; Z87.891 Personal history of nicotine dependence; Z79.4 Long term (current) use of insulin; I25.2 Old myocardial infarction; D69.6 Thrombocytopenia, unspecified; I25.84 Coronary atherosclerosis due to calcified coronary lesion; I25.10 Atherosclerotic heart disease of native coronary artery without angina pectoris; Z99.81 Dependence on supplemental oxygen; G47.33 Obstructive sleep apnea (adult) (pediatric); J43.9 Emphysema, unspecified; Z20.828 Contact with and (suspected) exposure to other viral communicable diseases; I70.1 Atherosclerosis of renal artery; N40.0 Benign prostatic hyperplasia without lower urinary tract symptoms; Z79.82 Long term (current) use of aspirin; Z79.899 Other long term (current) drug therapy; Z80.1 Family history of malignant neoplasm of trachea, bronchus and lung; Z95.5 Presence of coronary angioplasty implant and graft; M51.37 Other intervertebral disc degeneration, lumbosacral region; M51.35 Other intervertebral disc degeneration, thoracolumbar region; E55.9 Vitamin D deficiency, unspecified; L40.9 Psoriasis, unspecified; I87.2 Venous insufficiency (chronic) (peripheral)
CPT/HCPCS: 36415; 71046; 80048; 80053; 80061; 83036; 83735; 83880; 84484; 85025; 85027; 85610; 85730; 87635; 93005; 93306; 93458; 99291